=== PATIENT | female | born 1985 | race Caucasian/White ===

== ENCOUNTER 2019-06-02 14:20 | Emergency (ER) | payer OTHER ==
[~2019-06-02] VITALS: Ht 152.4 cm; Wt 90.7 kg
[2019-06-02 14:45] VITALS: BP_SYST 160
[2019-06-02] MEDS ORDERED: HYDROcodone/ACETAMIN 5-325 MG TAB (NORCO/ VICODIN) PO ONE (15:00)
[2019-06-02 15:12] VITALS: BP_SYST 158
== END 2019-06-02 15:12 | disposition home or self-care (01) ==
LOC: SED 14:20
DX: K08.89 Other specified disorders of teeth and supporting structures (principal); Z88.8 Allergy status to other drugs, medicaments and biological substances
CPT/HCPCS: 99283